=== PATIENT | female | born 1960 | race Caucasian/White ===

== ENCOUNTER 2016-11-20 08:53 | Day surgery (SDC) | payer OTHER ==
[2016-11-20] MEDS ORDERED: NS 1,000 ML ONE (09:22)
[2016-11-20] MEDS ORDERED: VALIUM ONE (09:50)
[2016-11-20] MEDS ORDERED: SENSORCAINE-MPF 0.5%/EPI 1:200,000 ONE (10:20)
[2016-11-20] MEDS ORDERED: SENSORCAINE-MPF 0.5%/EPI 1:200,000 INJ ONE (10:25)
[2016-11-20 10:40] LABS: EOS# 0.03 X1000 (0.0-0.7); EOS% 2.1 % (0.0-10.0); HEMATOCRIT 32.6 % (37.0-47.0); HEMOGLOBIN 10.9 g/dL (12.0-16.0); LYMPH# 0.56 X1000 (1.2-3.4); LYMPH% 38.6 % (20.5-51.1); MANUAL DIFF NEEDED? YES; MCH 34.3 PG (27-31); MCHC 33.4 g/dL (33-37); MCV 102.5 FL (81-99); MONO# 0.06 X1000 (0.11-0.59); MONO% 4.1 % (1.7-9.3); MPV 10.6 FL (7.4-10.4); NEUT% 55.2 % (42.2-75.2); PLT 137 X1000 (130-400); RBC 3.18 XMIL (4.2-5.4)
[2016-11-20 11:17] LABS: EOS 4 % (1-10); LYMPHS 32 % (21-51); MONO 6 % (1-9)
[2016-11-20] MEDS ORDERED: DIPRIVAN 1% ONE ×2 (11:25→11:26)
[2016-11-20] MEDS ORDERED: VERSED ONE (11:26)
[2016-11-20] MEDS ORDERED: XYLOCAINE-MPF 2% ONE (11:32)
[2016-11-20 11:45] LABS: FLOW CYTOMETERY SOURCE BONE MARROW; LEUKEMIA LYMPHOMA BY FLOW REFERRED FOR TESTING
[2016-11-20 11:57] VITALS: BP 141/81
== END 2016-11-20 12:35 | disposition home or self-care (01) ==
LOC: ENDO 08:53
PROVIDERS: ATTEND Internal Medicine
DX: D72.819 Decreased white blood cell count, unspecified (principal); D69.6 Thrombocytopenia, unspecified; D64.9 Anemia, unspecified; I10 Essential (primary) hypertension; M19.90 Unspecified osteoarthritis, unspecified site; Z86.718 Personal history of other venous thrombosis and embolism; G35 Multiple sclerosis; F41.9 Anxiety disorder, unspecified; F32.9 Major depressive disorder, single episode, unspecified; Z98.84 Bariatric surgery status; Z79.51 Long term (current) use of inhaled steroids; Z79.899 Other long term (current) drug therapy; Z79.1 Long term (current) use of non-steroidal anti-inflammatories (NSAID)
CPT/HCPCS: 85025; 85999; 87102; 88305; 88311; 88313; J2250; J7030; S0020